=== PATIENT | male | born 1960 | race Caucasian/White ===

== ENCOUNTER 2022-05-07 18:17 | Emergency (ER) | payer OTHER ==
[2022-05-07 18:26] VITALS: BP 171/91; PULSE 100; RESP 19; TEMP 98; BMI 18.6
== END 2022-05-07 20:21 | disposition home or self-care (01) ==
LOC: JERFT 18:17
PROC: 0RSWXZZ Reposition Right Finger Phalangeal Joint, External Approach (ICD-10-PCS; principal; 2022-05-07)
DX: S63.286A Dislocation of proximal interphalangeal joint of right little finger, initial encounter (principal); W01.0XXA Fall on same level from slipping, tripping and stumbling without subsequent striking against object, initial encounter
CPT/HCPCS: 73140-TC-RT-FY; 99283-25

== ENCOUNTER 2024-11-18 09:24 | Emergency (ER) | payer BC, OTHER ==
[2024-11-18 09:47] VITALS: BP 163/105; PULSE 105; RESP 18; TEMP 98.2
[2024-11-18] MEDS ORDERED: IBUPROFEN 400 MG TABLET (FP) PO ONE (10:23)
[2024-11-18] MEDS ORDERED: ACETAMINOPHEN 500 MG TABLET (FP) ONE (10:23)
[2024-11-18] MEDS: ACETAMINOPHEN 500 MG TABLET (FP) PO ONE (10:24)
[2024-11-18] MEDS: IBUPROFEN 400 MG TABLET (FP) PO ONE (10:24)
[2024-11-18 11:20] LABS: THROAT:GRP A STREP DETECTED (NOTDETECTED)
== END 2024-11-18 11:08 | disposition home or self-care (01) ==
LOC: FER 09:24
DX: J02.0 Streptococcal pharyngitis (principal); R07.0 Pain in throat
CPT/HCPCS: 0241U-QW; 87651; 99283-25